=== PATIENT | female | born 1985 | race Caucasian/White ===

== ENCOUNTER 2018-12-27 08:00 | Inpatient (IN) ==
[2018-12-27] MEDS ORDERED: Metoclopramide 10 MG/2 ML VIAL IVP PRN (08:29)
[2018-12-27] MEDS ORDERED: Ondansetron 4 MG/2 ML VIAL IVP PRN (08:29)
[2018-12-27] MEDS ORDERED: *HR* Nalbuphine 10 MG/ML AMPUL IVP PRN (08:29)
[2018-12-27] MEDS ORDERED: Famotidine 20 MG/2 ML VIAL IVP PRN (08:29)
[2018-12-27] MEDS ORDERED: Lidocaine 1% 20 ML MDV INFILT PRN (08:29)
[2018-12-27] MEDS ORDERED: Naloxone 0.4 MG/ML INJ IVP PRN (08:29)
[2018-12-27] MEDS ORDERED: miSOPROStol 25 MCG TABLET VG PRN (08:31)
[2018-12-27] MEDS ORDERED: Penicillin G Potassium 5,000,000 UNIT in 0.9 % Sodium Chloride Mini Bag 100 ML IVPB ONE (08:39)
[2018-12-27 09:01] LABS: Basophils # 0.2 K/mcL (0.0-0.2); Basophils % 1.1 %; Eosinophils # 0.1 K/mcL (0.0-0.6); Eosinophils % 0.9 %; Hematocrit 34.8 % (35.3-44.9); Hemoglobin 12.3 g/dL (11.5-15.4); Immature Granulocytes % 3.2 % (0-4); Lymphocytes # 3.9 K/mcL (0.6-4.6); Lymphocytes % 26.3 %; Mean Corpuscular HGB Conc 35.3 g/dL (31.6-35.5); Mean Corpuscular Hemoglobin 31.5 pg (28.0-33.3); Mean Platelet Volume 11.1 fL (9.4-12.4); Monocytes # 1.3 K/mcL (0.0-1.3); Neutrophils # 8.8 K/mcL (1.6-8.9); Platelet Count 249 K/mcL (140-400); Red Blood Count 3.91 M/mcL (3.82-4.97); Red Cell Distribution Width 14.5 % (11.5-14.5); Segmented Neutrophils % 59.5 %; White Blood Count 14.8 K/mcL (4.3-11.1)
[2018-12-27] MEDS: Ringers Solution, Lactated 1,000 ML IVC SCH ×2 (09:08→19:32)
[2018-12-27 09:10] LABS: Amphetamine Screen,Urine Negative ng/mL (Cutoff=1000); Barbiturate Screen,Urine Negative ng/mL (Cutoff=200); Benzodiazepines Screen,Urine Negative ng/mL (Cutoff=200); Cannabinoid Screen,Urine Negative ng/mL (Cutoff = 50); Cocaine Screen,Urine Negative ng/mL (Cutoff= 300); Opiate Screen,Urine Negative ng/mL (Cutoff=300); Phencyclidine Screen,Urine Negative ng/mL (Cutoff=25)
[2018-12-27] MEDS: Penicillin G Potassium 2,500,000 UNIT in 0.9 % Sodium Chloride 100 ML IVPB SCH ×3 (13:06→21:26)
[2018-12-27] MEDS ORDERED: *HR* FentaNYL (PF) 100 MCG/2 ML VIAL ONE (15:56)
[2018-12-27] MEDS ORDERED: Bupivacaine-MPF 0.25% 10 ML VIAL ONE (15:56)
[2018-12-27] MEDS ORDERED: EPHEDrine 50 MG/ML VIAL ONE (16:39)
[2018-12-27] MEDS: Epidural Premix (fent/bupiv) 110 ML EP SCH (17:07)
[2018-12-27] MEDS: Oxytocin 20 units/ LR 1000 mL 20 UNIT/1,000 ML BAG IVC SCH (17:57)
[2018-12-28] MEDS: Epidural Premix (fent/bupiv) 110 ML EP SCH (00:27)
[2018-12-28] MEDS ORDERED: Bupivacaine-MPF 0.25% 10 ML VIAL ONE (01:09)
[2018-12-28] MEDS ORDERED: *HR* FentaNYL (PF) 100 MCG/2 ML VIAL ONE (01:09)
[2018-12-28] MEDS: Penicillin G Potassium 2,500,000 UNIT in 0.9 % Sodium Chloride 100 ML IVPB SCH (01:38)
[2018-12-28] MEDS: Oxytocin 20 units/ LR 1000 mL 20 UNIT/1,000 ML BAG IVC SCH (03:45)
[2018-12-28] MEDS ORDERED: Oxytocin 20 units/ LR 1000 mL 20 UNIT/1,000 ML BAG IVC SCH (06:37)
[2018-12-28] MEDS ORDERED: Lanolin 7 G OINT...G. TP PRN (06:37)
[2018-12-28] MEDS ORDERED: Benzocaine/Menthol 56 GM AEROSOL SPRAY TP PRN (06:37)
[2018-12-28] MEDS: Acetaminophen 325 MG TABLET PO PRN ×3 (07:02→20:45)
[2018-12-28] MEDS: Prenatal Vit/FA 1 EACH TABLET PO SCH (08:35)
[2018-12-28] MEDS: Ibuprofen 600 MG TABLET PO PRN ×2 (17:35→23:49)
[2018-12-29 06:45] LABS: Basophils # 0.1 K/mcL (0.0-0.2); Basophils % 0.4 %; Eosinophils # 0.2 K/mcL (0.0-0.6); Eosinophils % 0.8 %; Hematocrit 29.8 % (35.3-44.9); Hemoglobin 10.1 g/dL (11.5-15.4); Immature Granulocytes % 1.6 % (0-4); Lymphocytes # 5.3 K/mcL (0.6-4.6); Lymphocytes % 29.3 %; Mean Corpuscular HGB Conc 33.9 g/dL (31.6-35.5); Mean Corpuscular Hemoglobin 31.1 pg (28.0-33.3); Mean Corpuscular Volume 91.7 fL (83.0-100.0); Mean Platelet Volume 10.7 fL (9.4-12.4); Monocytes # 1.4 K/mcL (0.0-1.3); Monocytes % 7.8 %; Neutrophils # 10.9 K/mcL (1.6-8.9); Platelet Count 189 K/mcL (140-400); Red Blood Count 3.25 M/mcL (3.82-4.97); Red Cell Distribution Width 14.3 % (11.5-14.5); Segmented Neutrophils % 60.1 %; White Blood Count 18.1 K/mcL (4.3-11.1)
[2018-12-29] MEDS: Prenatal Vit/FA 1 EACH TABLET PO SCH (07:45)
[2018-12-29] MEDS: Acetaminophen 325 MG TABLET PO PRN (08:14)
[2018-12-29 09:31] VITALS: BP 100/63
== END 2018-12-29 11:27 | disposition home or self-care (01) | DRG 806 ==
LOC: 1NENULAB 08:04 → 1NENUOBS 12-28 05:57
PROVIDERS: ADMIT Obstetrics & Gynecology; ATTEND Obstetrics & Gynecology